=== PATIENT | female | born 1955 | race Caucasian/White ===

== ENCOUNTER 2023-09-22 08:00 | Outpatient (RCR) | payer MEDICARE, SELFPAY | END 2023-09-30 09:00 | disposition home or self-care (01) | LOC: PT 08:00 | PROVIDERS: Visit Provider Orthopaedic Surgery Adult Reconstructive Orthopaedic Surgery | DX: M25.561 Pain in right knee (principal) | CPT/HCPCS: 97010; 97014; 97110; 97112; 97163; 97530; G0283 ==

== ENCOUNTER 2024-07-28 10:00 | Outpatient (RCR) | payer MEDICARE, SELFPAY | END 2024-07-28 23:59 | disposition home or self-care (01) | LOC: PT 10:00 | PROVIDERS: Visit Provider Family Medicine Sports Medicine | DX: M25.562 Pain in left knee (principal) | CPT/HCPCS: 97014; 97035; 97110; 97163; G0283 ==